=== PATIENT | male | born 1975 | race Two or more races ===

== ENCOUNTER 2025-05-24 09:29 | Inpatient (IN) | payer OTHER ==
[~2025-05-24] VITALS: Ht 180.3 cm; Wt 190.5 kg
[2025-05-24] MEDS ORDERED: CARVEDILOL3.125 M1 PO (09:35)
[2025-05-24] MEDS ORDERED: METFORMIN HCL500 M3 PO (09:35)
[2025-05-24] MEDS ORDERED: ZESTRIL2.5 MG PO (09:36)
[2025-05-24] MEDS ORDERED: LASIX20 MG PO (09:36)
[2025-05-24] MEDS ORDERED: AMLODIPINE-OLM1 EAC2 PO (09:36)
[2025-05-24] MEDS ORDERED: MOUNJARO2.5 MG/0.5 SQ (09:37)
--- NOTE | 2025-05-24 09:41 | NUR ---
SE RECIBE PACIENTE ALERTA Y ORIENTADO X3 QUIEN REFIERE TENER DIVERTICULITIS Y PRESENTAR DOLOR. SE MIDEN S/V Y SE UBICA EN PASILLO.
[2025-05-24] MEDS ORDERED: KETOROLAC TROMETHAMINE 30 MG VIAL ONE (09:56)
[2025-05-24] MEDS ORDERED: KETOROLAC TROMETHAMINE 30 MG VIAL IV ONE (10:00)
[2025-05-24] MEDS ORDERED: 0.9 % SODIUM CHLORIDE 1,000 ML IV SCH (10:00)
--- NOTE | 2025-05-24 10:23 | NUR ---
PTE EVLAUADO POR EL DRA. ALMANZAR. SE ORIENTA SOBRE TRATAMIENTO, VERBALZIA ENTENDER. SE CANALIZA, COLECTA MUESTRAS DE LAB Y SE ADMINISTRA MEDICAMENTO OPAL ORDEN MEDICA BAJO MEDIDAS ASEPTICAS. SE NOTIFICA CT.
[2025-05-24 10:54] LABS: BASO % 0.3 % (0.1-1.2); EOS # 0.08 (0.04-0.54); EOS % 0.8 % (0.7-7.0); LYMPH # 1.17 (1.18-3.74); LYMPH % 12.0 % (19.3-53.1); MEAN PLATELET VOLUME 10.90 fl (9.4-12.4); MONO # 1.28 (0.24-0.82); NEUT # 7.13 (1.56-6.13); NEUT % 73.5 % (34.0-71.1); RED CELL DISTRIBUTION WIDTH 13.4 % (11.6-14.4)
[2025-05-24 11:01] LABS: MONO % 13.2 % (4.7-12.5)
[2025-05-24 11:09] LABS: BUN CREA RATIO 8.0 (7.0-25.0); CREATININE SERUM 0.99 mg/dL (0.70-1.30); GFR 79.69; GLUCOSE FASTING 150.0 mg/dL (65-100); OSMOLALITY SERUM 282.0 MOSM/KG (275-295)
[2025-05-24 12:21] LABS: URINE APPEARANCE Clear; URINE BILIRRUBIN Negative (NEGATIVE); URINE BLOOD Negative; URINE COLOR Yellow; URINE GLUCOSE Negative (NEGATIVE); URINE KETONE Negative (NEGATIVE); URINE LEUKOCYTE Trace; URINE NITRATE Negative; URINE PROTEIN Negative (NEGATIVE); URINE UROBILINOGEN 0.2 E.U./dl
[2025-05-24 12:24] LABS: URINE BACTERIA 21.6 uL (0.0-1933); URINE EPITHELIAL CELLS 1.5 uL (0.0-38.8); URINE RBC 3.3 uL (0.0-20.8)
[2025-05-24 12:37] LABS: URINE CAST 0.00 uL (0.0-1.40); URINE WBC 1.2 uL (0.0-23.2)
[2025-05-24] MEDS ORDERED: PIPERACILLIN/TAZOBACTAM SODIUM 3.375 GM in 0.9 % SODIUM CHLORIDE 100 ML IV SCH (14:18)
[2025-05-24] MEDS ORDERED: PIPERACILLIN/TAZOBACTAM SODIUM 3.375 GM VIAL IV ONE (14:36)
[2025-05-24] MEDS ORDERED: MORPHINE SULFATE 4 MG/ML CARTRIDGE IV PRN (19:00)
[2025-05-24] MEDS ORDERED: ACETAMINOPHEN 325 MG TABLET PO PRN (19:00)
[2025-05-24] MEDS ORDERED: INSULIN LISPRO 1,000 UNIT/10 ML UNITS SUBCUTANEO PRN (19:00)
[2025-05-24] MEDS ORDERED: ONDANSETRON HCL 4 MG in 0.9 % SODIUM CHLORIDE 50 ML IV PRN (19:00)
[2025-05-24] MEDS ORDERED: DEXTROSE 50 % IN WATER 0.5 G/ML DISP.SYRIN IV PRN (19:00)
[2025-05-25 00:20] VITALS: BP 118/69; O2SAT 96
[2025-05-25 08:26] VITALS: BP 115/69; O2SAT 97
[2025-05-25] MEDS ORDERED: AMLODIPINE BESYLATE 2.5 MG TABLET PO SCH (09:00)
[2025-05-25] MEDS ORDERED: FAMOTIDINE/PF 20 MG/2 ML VIAL IV SCH (09:00)
[2025-05-25] MEDS ORDERED: CARVEDILOL 12.5 MG TABLET PO SCH (09:00)
[2025-05-25] MEDS ORDERED: LISINOPRIL 20 MG TABLET PO SCH (09:00)
[2025-05-25] MEDS ORDERED: ACETAMINOPHEN 500 MG GEL..CAP PO PRN (10:00)
[2025-05-25 16:17] VITALS: BP 104/64; O2SAT 97
[2025-05-26 00:54] VITALS: BP 107/63; O2SAT 97
[2025-05-26 07:37] LABS: ALT/SGPT 47.0 U/L (12-78); AST/SGOT 35.0 U/L (15-37); BILIRUBIN TOTAL 0.66 mg/dL (0.3-1.2); BUN CREA RATIO 8.0 (7.0-25.0); CHOL HDL RATIO 5.4 (0-5.0); CREATININE SERUM 0.98 mg/dL (0.70-1.30); GFR 80.63; GLOBULINA 3.3 G/DL (2.4-3.5); GLUCOSE FASTING 92.0 mg/dL (65-100); HDL 25.0 mg/dl (40-60); LDL 90.0 mg/dl (0-130); OSMOLALITY SERUM 287.0 MOSM/KG (275-295); VLDL 18.0 (0-39)
[2025-05-26 07:38] LABS: TSH 5.89 uIU/mL (0.358-3.74)
[2025-05-26] MEDS ORDERED: AMLODIPINE BESYLATE 5 MG TABLET PO SCH (09:00)
[2025-05-26 15:12] LABS: BASO % 0.6 % (0.1-1.2); EOS # 0.14 (0.04-0.54); EOS % 2.9 % (0.7-7.0); LYMPH # 1.09 (1.18-3.74); LYMPH % 22.9 % (19.3-53.1); MEAN PLATELET VOLUME 10.70 fl (9.4-12.4); MONO # 0.57 (0.24-0.82); MONO % 12.0 % (4.7-12.5); NEUT # 2.91 (1.56-6.13); NEUT % 61.2 % (34.0-71.1); RED CELL DISTRIBUTION WIDTH 13.1 % (11.6-14.4)
[2025-05-26 15:31] LABS: ERYTHROCYTE SEDIMENTATION RATE 38 mm/hr (0-20)
[2025-05-26 15:41] LABS: ALT/SGPT 55.0 U/L (12-78); AST/SGOT 37.0 U/L (15-37); BILIRUBIN TOTAL 0.5 mg/dL (0.3-1.2); BUN CREA RATIO 9.0 (7.0-25.0); CREATININE SERUM 0.93 mg/dL (0.70-1.30); GFR 85.66; GLOBULINA 4.4 G/DL (2.4-3.5); GLUCOSE FASTING 130.0 mg/dL (65-100); OSMOLALITY SERUM 287.0 MOSM/KG (275-295)
[2025-05-26 16:53] VITALS: BP 144/71; O2SAT 95
[2025-05-27 01:27] VITALS: BP 108/68; O2SAT 96
[2025-05-27 08:30] VITALS: BP 102/66; O2SAT 98
[2025-05-27] MEDS ORDERED: SODIUM CHLORIDE 0.45 % 1,000 ML IV SCH (08:45)
[2025-05-27] MEDS ORDERED: LACTOBACILLUS ACIDOPHILUS 1 CAP CAP PO SCH (09:00)
[2025-05-27 16:00] VITALS: BP 104/65; O2SAT 98
[2025-05-27 19:39] LABS: T4 FREE 1.13 NG/ML (0.76-1.46); TSH 8.65 uIU/mL (0.358-3.74)
[2025-05-28 01:00] VITALS: BP 115/57; O2SAT 98
[2025-05-28 05:37] VITALS: BP 105/66
[2025-05-28 08:43] VITALS: BP 130/84; O2SAT 100
[2025-05-28 17:56] VITALS: BP 137/86; O2SAT 100
[2025-05-29 00:23] VITALS: BP 136/65; O2SAT 98
[2025-05-29] MEDS ORDERED: AMOX-CLAV 875-1 EAC1 PO (12:00)
[2025-05-29] MEDS ORDERED: INTESTINEX680 M1 PO (12:00)
== END 2025-05-29 14:14 | disposition home or self-care (01) | DRG 392 ==
LOC: ER 09:29 → MEDI 18:51 → SURG 18:51
PROVIDERS: General Practice; ADMIT Internal Medicine; ATTEND Internal Medicine
PROC: B246ZZZ Ultrasonography of Right and Left Heart (ICD-10-PCS; principal; 2025-05-24)
PROC: BW21YZZ Computerized Tomography (CT Scan) of Abdomen and Pelvis using Other Contrast (ICD-10-PCS; 2025-05-24)
DX: K57.32 Diverticulitis of large intestine without perforation or abscess without bleeding (principal); E11.65 Type 2 diabetes mellitus with hyperglycemia; E87.6 Hypokalemia; I10 Essential (primary) hypertension; E03.9 Hypothyroidism, unspecified; G47.33 Obstructive sleep apnea (adult) (pediatric); Z79.84 Long term (current) use of oral hypoglycemic drugs

== ENCOUNTER 2025-06-21 17:27 | Inpatient (IN) | payer OTHER ==
[~2025-06-21] VITALS: Ht 182.9 cm; Wt 192.8 kg
[~2025-06-21 17:27] MED LIST: AMLODIPINE-OLM1 EAC2 PO; AMOX-CLAV 875-1 EAC1 PO; CARVEDILOL3.125 M1 PO; INTESTINEX680 M1 PO; LASIX20 MG PO; METFORMIN HCL500 M3 PO; MOUNJARO2.5 MG/0.5 SQ; ZESTRIL2.5 MG PO
[2025-06-21] MEDS ORDERED: MAGNESIUM CITR100 MG (18:14)
[2025-06-21 19:40] LABS: ERYTHROCYTE SEDIMENTATION RATE 9 mm/hr (0-20)
[2025-06-21 19:42] LABS: BASO % 0.3 % (0.1-1.2); EOS # 0.07 (0.04-0.54); EOS % 0.9 % (0.7-7.0); LYMPH # 1.21 (1.18-3.74); LYMPH % 15.9 % (19.3-53.1); MEAN PLATELET VOLUME 10.80 fl (9.4-12.4); MONO # 0.97 (0.24-0.82); NEUT # 5.29 (1.56-6.13); NEUT % 69.5 % (34.0-71.1); RED CELL DISTRIBUTION WIDTH 13.2 % (11.6-14.4)
[2025-06-21 19:47] LABS: MONO % 12.7 % (4.7-12.5)
[2025-06-21 20:05] LABS: INR 1.03
[2025-06-21 20:09] LABS: ALT/SGPT 52.0 U/L (12-78); AST/SGOT 26.0 U/L (15-37); BILIRUBIN TOTAL 0.94 mg/dL (0.3-1.2); BUN CREA RATIO 9.0 (7.0-25.0); CREATININE SERUM 1.03 mg/dL (0.70-1.30); GFR 76.13; GLOBULINA 3.5 G/DL (2.4-3.5); GLUCOSE FASTING 123.0 mg/dL (65-100); OSMOLALITY SERUM 279.0 MOSM/KG (275-295)
[2025-06-21] MEDS ORDERED: FAMOTIDINE/PF 20 MG/2 ML VIAL IV STA (21:28)
[2025-06-21] MEDS ORDERED: ONDANSETRON HCL 2 MG/ML VIAL IV STA (21:29)
[2025-06-21] MEDS ORDERED: MORPHINE SULFATE 4 MG/ML CARTRIDGE IV STA (21:29)
[2025-06-21] MEDS ORDERED: 0.9 % SODIUM CHLORIDE 1,000 ML IV SCH (21:30)
[2025-06-21] MEDS ORDERED: METRONIDAZOLE/SODIUM CHLORIDE 500 MG/100 ML PIGGYBACK IV STA (22:52)
[2025-06-21] MEDS ORDERED: CIPROFLOXACIN IN 5 % DEXTROSE 400 MG/200 ML PIGGYBAG IV STA (22:52)
[2025-06-22 01:24] LABS: URINE APPEARANCE Clear; URINE BILIRRUBIN Negative (NEGATIVE); URINE BLOOD Negative; URINE COLOR Yellow; URINE GLUCOSE Negative (NEGATIVE); URINE KETONE 15 (NEGATIVE); URINE LEUKOCYTE Negative; URINE NITRATE Negative; URINE PROTEIN Negative (NEGATIVE); URINE UROBILINOGEN 1.0 E.U./dl
[2025-06-22 01:29] LABS: URINE BACTERIA 15.5 uL (0.0-1933); URINE EPITHELIAL CELLS 6.1 uL (0.0-38.8); URINE RBC 3.9 uL (0.0-20.8); URINE WBC 6.4 uL (0.0-23.2)
[2025-06-22 01:30] LABS: URINE CAST 0.00 uL (0.0-1.40)
[2025-06-22] MEDS ORDERED: INSULIN LISPRO 1,000 UNIT/10 ML UNITS SUBCUTANEO PRN (01:30)
[2025-06-22] MEDS ORDERED: 0.9 % SODIUM CHLORIDE 1,000 ML IV SCH (01:30)
[2025-06-22] MEDS ORDERED: DEXTROSE 50 % IN WATER 0.5 G/ML DISP.SYRIN IV PRN (01:30)
[2025-06-22] MEDS ORDERED: ONDANSETRON HCL 4 MG in 0.9 % SODIUM CHLORIDE 50 ML IV PRN (01:45)
[2025-06-22] MEDS ORDERED: MORPHINE SULFATE 2 MG/ML SYRINGE IV PRN (01:45)
[2025-06-22] MEDS ORDERED: AMLODIPINE BESYLATE 5 MG TABLET PO SCH (09:00)
[2025-06-22] MEDS ORDERED: LISINOPRIL 20 MG TABLET PO SCH (09:00)
[2025-06-22] MEDS ORDERED: FAMOTIDINE/PF 20 MG in 0.9 % SODIUM CHLORIDE 100 ML IV SCH ×2 (09:00→21:00)
[2025-06-22 09:50] VITALS: BP 126/80; O2SAT 97
[2025-06-23 02:24] VITALS: BP 122/63; O2SAT 97
[2025-06-23 06:43] LABS: BASO % 0.5 % (0.1-1.2); EOS # 0.09 (0.04-0.54); EOS % 2.1 % (0.7-7.0); LYMPH # 0.99 (1.18-3.74); LYMPH % 22.9 % (19.3-53.1); MEAN PLATELET VOLUME 11.00 fl (9.4-12.4); MONO # 0.63 (0.24-0.82); NEUT # 2.57 (1.56-6.13); NEUT % 59.4 % (34.0-71.1); RED CELL DISTRIBUTION WIDTH 13.4 % (11.6-14.4)
[2025-06-23 07:02] LABS: MONO % 14.6 % (4.7-12.5)
[2025-06-23 07:48] LABS: INR 1.01
[2025-06-23 09:18] VITALS: BP 124/80; O2SAT 98
[2025-06-23 11:08] LABS: BUN CREA RATIO 8.0 (7.0-25.0); CREATININE SERUM 0.85 mg/dL (0.70-1.30); GFR 95.03; GLUCOSE FASTING 148.0 mg/dL (65-100); OSMOLALITY SERUM 284.0 MOSM/KG (275-295)
== END 2025-06-23 14:42 | disposition home or self-care (01) | DRG 392 ==
LOC: ER 17:27 → SEC-K 06-22 04:27 → MEDJ 06-22 04:27
PROVIDERS: Physician Assistant Medical; ADMIT Internal Medicine; ATTEND Internal Medicine
PROC: BW21YZZ Computerized Tomography (CT Scan) of Abdomen and Pelvis using Other Contrast (ICD-10-PCS; principal; 2025-06-21)
DX: K57.32 Diverticulitis of large intestine without perforation or abscess without bleeding (principal)